=== PATIENT | female | born 1985 | race Caucasian/White ===

== ENCOUNTER 2016-11-20 12:24 | Emergency (ER) | payer MEDICAID ==
[~2016-11-20] VITALS: Ht 167.6 cm; Wt 81.6 kg
[2016-11-20 12:36] VITALS: BP 116/71
--- NOTE | 2016-11-20 13:00 | NUR ---
PATIENT PRESENTS TO ED WITH C/O BUTTOCK ABSCESS . DENIES N/V/D; SKIN IS PINK/WARM/DRY; AAOX4 WITH EVEN AND STEADY GAIT; LUNGS CLEAR BL; HR EVEN AND REGULAR; PT DENIES ANY FEVER, CP, SOB, OR COUGH AT THIS TIME; PATIENT STATES PAIN OF 0/10 AT THIS TIME; VSS; PATIENT POSITIONED FOR COMFORT; HOB ELEVATED; BEDRAILS UP X2; BED DOWN. ER MD MADE AWARE OF PT STATUS.
--- NOTE | 2016-11-20 14:35 | NUR ---
Patient discharged with v/s stable. Written and verbal after care instructions given and explained. Patient alert, oriented and verbalized understanding of instructions. Ambulatory with steady gait. All questions addressed prior to discharge. ID band removed. Patient advised to follow up with PMD. Rx of KEFLEX, BACTRIM, MUPIROCIN AND ANUSOL given. Patient educated on indication of medication including possible reaction and side effects. Opportunity to ask questions provided and answered.
[2016-11-20 14:42] VITALS: BP 98/68
== END 2016-11-20 14:35 | disposition home or self-care (01) ==
LOC: MED 12:24
PROC: 3E0134Z Introduction of Serum, Toxoid and Vaccine into Subcutaneous Tissue, Percutaneous Approach (ICD-10-PCS; principal; 2016-11-20)
DX: L02.31 Cutaneous abscess of buttock (principal); L73.9 Follicular disorder, unspecified
CPT/HCPCS: 90471; 90715; 99283

== ENCOUNTER 2018-10-03 19:53 | Emergency (ER) | payer MEDICAID ==
[~2018-10-03] VITALS: Ht 170.2 cm; Wt 105.2 kg
[2018-10-03 20:15] VITALS: BP 123/74
--- NOTE | 2018-10-03 20:18 | NUR ---
TO LOBBY A/W BED, RAVIN KAUR NOTED
--- NOTE | 2018-10-03 20:22 | NUR ---
TO ER BED 7
--- NOTE | 2018-10-03 20:25 | NUR ---
33/F PRESENTS TO ED WITH BOYFRIEND, C/O MODERATE AMOUNT VAGINAL BLEEDING X1 DAY. REPORTS SUPRAPUBIC CRAMPING, AND RELATED N/V. REPORTS FEVER AND FEELING COLD, AFEBRILE AT THIS TIME. PT DENIES CP, SOB, DIZZINESS. PT IS , 10 WEEKS , A1. PT AOX4, GCS 15, RR EVEN AND UNLABORED. HX HTN NO RX
--- NOTE | 2018-10-03 21:06 | NUR ---
L&D RN AT BEDSIDE FOR HEART TONE ASSESSMENT
--- NOTE | 2018-10-03 21:15 | NUR ---
PER L&D RN, NO HEART TONES DETECTED AT THIS TIME, ER MADE AWARE
[2018-10-03 21:46] LABS: BASOPHILS % (AUTO) 0.5 % (0.0-2.0); EOSINOPHILS # (AUTO) 0.8 K/uL (0-0.4); EOSINOPHILS % (AUTO) 9.2 % (0.0-4.0); HEMATOCRIT 40.6 % (36-48); HEMOGLOBIN 13.3 g/dL (12.0-16.0); LYMPHOCYTES # (AUTO) 1.9 K/uL (2.5-16.5); LYMPHOCYTES % (AUTO) 22.2 % (20.5-51.1); MEAN CORPUSCULAR HEMOGLOBIN 28 pg (27-31); MEAN CORPUSCULAR HGB CONC 33 g/dL (33-37); MEAN CORPUSCULAR VOLUME 85.4 fL (80-94); MONOCYTES # (AUTO) 0.8 K/uL (0.8-1.0); MONOCYTES % (AUTO) 9.1 % (1.7-9.3); NEUTROPHILS # (AUTO) 4.9 K/uL (1.8-7.7); PLATELET COUNT (AUTO) 327 K/uL (140-450); RED BLOOD CELL COUNT(AUTO) 4.76 MIL/uL (4.20-5.40); RED CELL DISTRIBUTION WIDTH 14.1 % (11.6-13.7); WHITE BLOOD COUNT (AUTO) 8.4 K/uL (4.8-10.8)
--- NOTE | 2018-10-03 22:00 | NUR ---
US TECH AT BEDSIDE
--- NOTE | 2018-10-03 22:30 | NUR ---
PT LAYING IN BED, AT BEDSIDE, VSS, REPORTS 6/10 SUPRAPUBIC CRAMPING, RR EVEN AND UNLABORED. ALL NEEDS MET.
[2018-10-03 22:31] LABS: APPEARANCE,URINE CLEAR (CLEAR); BILIRUBIN,URINE NEGATIVE (NEGATIVE); BLOOD, URINE 1+ (NEGATIVE); COLOR,URINE YELLOW (YELLOW); LEUKOCYTE ESTERASE ,URINE TRACE (NEGATIVE); NITRITE, URINE NEGATIVE (NEGATIVE); UGLUCOSE NEGATIVE (NEGATIVE)
--- NOTE | 2018-10-03 23:10 | NUR ---
ER AT BEDSIDE
[2018-10-03 23:18] LABS: RBC,URINE 0-5 (RARE) /HPF (0-5); WBC,URINE 0-5 (RARE) /HPF (0-5)
--- NOTE | 2018-10-03 23:38 | NUR ---
Patient discharged with v/s stable. Written and verbal after care instructions given and explained. Patient alert, oriented and verbalized understanding of instructions. Ambulatory with steady gait. All questions addressed prior to discharge. ID band removed. Patient advised to follow up with PMD. Rx of ZOFRAN, INSTRUCTED TO GET OTC ACETAMINOPHEN. Patient educated on indication of medication including possible reaction and side effects. Opportunity to ask questions provided and answered.
[2018-10-03 23:39] VITALS: BP 142/67
== END 2018-10-03 23:38 | disposition home or self-care (01) ==
LOC: MED 19:53
DX: O20.0 Threatened abortion (principal); Z3A.11 11 weeks gestation of pregnancy; O16.1 Unspecified maternal hypertension, first trimester; Z98.82 Breast implant status
CPT/HCPCS: 36415; 76815; 81001; 81025; 84702; 85025; 86900; 86901; 99284; Q0092

== ENCOUNTER 2018-10-19 23:54 | Emergency (ER) | payer MEDICAID ==
[~2018-10-19] VITALS: Ht 160 cm; Wt 106.6 kg
[2018-10-20 00:05] VITALS: BP 109/51
--- NOTE | 2018-10-20 00:10 | NUR ---
33/F PRESENTS WITH FAMILY, C/O MODERATE VAGINAL BLEEDING, X2 HRS. PT REPORTS SHE'S 14 WEEKS , A1. PT REPORTS 8/10 SUPRAPUBIC CRAMPING. PT AOX4, GCS 15, RR EVEN AND UNLABORED. DENIES MED HX, RX OR VITAMINS
--- NOTE | 2018-10-20 00:10 | NUR ---
PHLEB AT BEDSIDE FOR DRAWS
--- NOTE | 2018-10-20 00:10 | NUR ---
PT TAKEN TO BED 7
--- NOTE | 2018-10-20 00:32 | NUR ---
ER AT BEDSIDE
--- NOTE | 2018-10-20 00:32 | NUR ---
Macie kelley in ED - 10/20/18 at 0435 by RODERICK PT REFUSING TO HAVE BLOOD DRAWN, DR CORREA AT BEDSIDE TO SPEAK WITH PT ABOUT AMA. PT SIGNED AMA FORM.
--- NOTE | 2018-10-20 00:32 | NUR ---
PT REFUSING TO HAVE BLOOD DRAWN, DR CORREA AT BEDSIDE TO SPEAK WITH PT ABOUT AMA. PT SIGNED AMA FORM.
--- NOTE | 2018-10-20 01:00 | NUR ---
Patient does not wish to proceed with medical care recommended by DR. CORREA. Patient given information related to possible complications, up to and including , which could occur as a result of leaving hospital at this time. Patient verbalizes understanding of risks involved leaving against medical advice. Patient has signed AMA form.
== END 2018-10-20 01:00 | disposition left against medical advice (07) ==
LOC: MED 23:54
DX: O20.0 Threatened abortion (principal); I10 Essential (primary) hypertension; Z3A.16 16 weeks gestation of pregnancy
CPT/HCPCS: 81025; 99282

== ENCOUNTER 2018-10-21 04:49 | Emergency (ER) | payer MEDICAID ==
[~2018-10-21] VITALS: Ht 170.2 cm; Wt 102.1 kg
[2018-10-21 04:54] VITALS: BP 96/59
--- NOTE | 2018-10-21 04:54 | NUR ---
PT W/C ASSISTED TO BED 7
--- NOTE | 2018-10-21 04:54 | NUR ---
PT BIB FAMILY FOR VAGINAL BLEEDING AND ABD CRAMPING X2 DAYS. PT UNABLE TO STATE HOW MANY PADS SHE IS GOING THROUGH BUT STATES THAT THERE ARE LARGE CLOTS. PT REPORTS N/V, DIZINESS, AND FEVER. PT AFEBRILE NOW. PT BP 96/59, CAP REFIL <3 SEC, NO EDEMA PRESENT, PT TACHYCARDIC AT 121. PT STATES SHE IS NOT SOB, DENIES CP. VSS. ER MD TO SEE PT.
[2018-10-21] MEDS ORDERED: NACL 0.9% 1,000 ML IV ONE (05:05)
--- NOTE | 2018-10-21 05:12 | NUR ---
PHLEB AT BEDSIDE FOR LAB DRAWS
--- NOTE | 2018-10-21 05:34 | NUR ---
Dr. Yates evaluating patient at bedside.
[2018-10-21 05:50] LABS: ALBUMIN 3.2 g/dL (3.4-5.0); ANION GAP 11.1 (8-16); CARBON DIOXIDE 24.4 mmol/L (21-32); CREATININE 0.7 mg/dL (0.6-1.3); POTASSIUM 3.5 mmol/L (3.5-5.1); TOTAL BILIRUBIN 0.3 mg/dL (0.0-1.0)
[2018-10-21] MEDS ORDERED: ACETAMINOPHEN EXTRA STRENGTH 500 MG TAB PO ONE (05:50)
[2018-10-21 05:56] LABS: PROTHROMBIN TIME 10.4 secs (10.8-13.4)
--- NOTE | 2018-10-21 05:56 | NUR ---
PT GOING TO US AT THIS TIME.
[2018-10-21 06:02] LABS: BASOPHILS % (AUTO) 0.4 % (0.0-2.0); EOSINOPHILS # (AUTO) 0.7 K/uL (0-0.4); HEMATOCRIT 36.5 % (36-48); HEMOGLOBIN 12.1 g/dL (12.0-16.0); MEAN CORPUSCULAR HEMOGLOBIN 29 pg (27-31); MEAN CORPUSCULAR HGB CONC 33 g/dL (33-37); MEAN CORPUSCULAR VOLUME 85.9 fL (80-94); MONOCYTES # (AUTO) 0.7 K/uL (0.8-1.0); MONOCYTES % (AUTO) 8.1 % (1.7-9.3); NEUTROPHILS # (AUTO) 5.3 K/uL (1.8-7.7); NEUTROPHILS % (AUTO) 60.5 % (42.2-75.2); PLATELET COUNT (AUTO) 341 K/uL (140-450); RED BLOOD CELL COUNT(AUTO) 4.25 MIL/uL (4.20-5.40); RED CELL DISTRIBUTION WIDTH 13.8 % (11.6-13.7); WHITE BLOOD COUNT (AUTO) 8.8 K/uL (4.8-10.8)
--- NOTE | 2018-10-21 06:23 | NUR ---
PT RETURN FROM ULTRASOUND
--- NOTE | 2018-10-21 06:44 | NUR ---
put pt on bed anaya to obtain urinal. pt stated she was dizzy and wasn't sure if she could walk. pt states she is nauseas at this time. VSS
[2018-10-21] MEDS ORDERED: KETOROLAC 30 MG/ML VIAL IVP ONE (07:00)
[2018-10-21 07:37] LABS: APPEARANCE,URINE CLOUDY (CLEAR); BILIRUBIN,URINE NEGATIVE (NEGATIVE); BLOOD, URINE 3+ (NEGATIVE); COLOR,URINE RED (YELLOW); LEUKOCYTE ESTERASE ,URINE NEGATIVE (NEGATIVE); NITRITE, URINE NEGATIVE (NEGATIVE); UGLUCOSE NEGATIVE (NEGATIVE)
[2018-10-21 07:38] LABS: RBC,URINE TOO NUMEROUS TO COUN /HPF (0-5)
[2018-10-21 07:40] LABS: WBC,URINE 0-5 (RARE) /HPF (0-5)
[2018-10-21 08:04] VITALS: BP 118/80
--- NOTE | 2018-10-21 08:05 | NUR ---
Patient discharged with v/s stable. Written and verbal after care instructions given and explained. Patient alert, oriented and verbalized understanding of instructions. Ambulatory with steady gait. All questions addressed prior to discharge. ID band removed. Patient advised to follow up with PMD. Rx of norco and naprosyn given. Patient educated on indication of medication including possible reaction and side effects. Opportunity to ask questions provided and answered.
--- NOTE | 2018-10-23 08:46 | NUR ---
Late entry confirmed with RN that 0.9 NS IV bolus was completed at 0630.
== END 2018-10-21 08:05 | disposition home or self-care (01) ==
LOC: MED 04:49
DX: O03.9 Complete or unspecified spontaneous abortion without complication (principal); I10 Essential (primary) hypertension; Z3A.01 Less than 8 weeks gestation of pregnancy
CPT/HCPCS: 36415; 76817; 80053; 81001; 84702; 85025; 85610; 85730; 86900; 86901; 96361; 96374; 99284; J1885; J7030

== ENCOUNTER 2022-02-08 05:25 | Observation (INO) | payer MEDICAID ==
[~2022-02-08] VITALS: Ht 170.2 cm; Wt 111.1 kg
[2022-02-08] MEDS ORDERED: PRETAB PO (05:49)
[2022-02-08] MEDS ORDERED: LACTATED RINGERS 1,000 ML IV SCH ×2 (06:00)
[2022-02-08] MEDS ORDERED: ONDANSETRON 4 MG/2 ML VIAL IVP PRN (06:00)
[2022-02-08] MEDS ORDERED: METOCLOPRAMIDE 10 MG/2 ML INJ VIAL IVP PRN (06:00)
[2022-02-08] MEDS ORDERED: ONDANSETRON 4 MG/2 ML VIAL ONE (06:07)
[2022-02-08] MEDS ORDERED: METOCLOPRAMIDE 10 MG/2 ML INJ VIAL ONE (06:08)
[2022-02-08 06:16] LABS: APPEARANCE,URINE CLOUDY (CLEAR); BILIRUBIN,URINE NEGATIVE (NEGATIVE); BLOOD, URINE 2+ (NEGATIVE); COLOR,URINE YELLOW (YELLOW); LEUKOCYTE ESTERASE ,URINE 1+ (NEGATIVE); NITRITE, URINE NEGATIVE (NEGATIVE); UGLUCOSE NEGATIVE (NEGATIVE)
[2022-02-08 06:17] LABS: BASOPHILS % (AUTO) 0.3 % (0.0-2.0); EOSINOPHILS # (AUTO) 0.2 K/uL (0-0.4); EOSINOPHILS % (AUTO) 3.9 % (0.0-4.0); HEMATOCRIT 40.5 % (36-48); HEMOGLOBIN 13.4 g/dL (12.0-16.0); LYMPHOCYTES # (AUTO) 0.4 K/uL (2.5-16.5); MEAN CORPUSCULAR HEMOGLOBIN 28 pg (27-31); MEAN CORPUSCULAR HGB CONC 33 g/dL (33-37); MEAN CORPUSCULAR VOLUME 85.1 fL (80-94); MONOCYTES # (AUTO) 0.3 K/uL (0.8-1.0); MONOCYTES % (AUTO) 5.5 % (1.7-9.3); NEUTROPHILS # (AUTO) 5.2 K/uL (1.8-7.7); NEUTROPHILS % (AUTO) 84.3 % (42.2-75.2); PLATELET COUNT (AUTO) 301 K/uL (140-450); RED BLOOD CELL COUNT(AUTO) 4.76 MIL/uL (4.20-5.40); RED CELL DISTRIBUTION WIDTH 14.1 % (11.6-13.7); WHITE BLOOD COUNT (AUTO) 6.2 K/uL (4.8-10.8)
[2022-02-08 06:23] LABS: RBC,URINE 0-5 /HPF (0-5)
[2022-02-08 06:35] LABS: ALBUMIN 2.8 g/dL (3.4-5.0); ANION GAP 12.1 (8-16); CARBON DIOXIDE 24.5 mmol/L (21-32); CREATININE 0.5 mg/dL (0.6-1.3); POTASSIUM 3.6 mmol/L (3.5-5.1); TOTAL BILIRUBIN 0.5 mg/dL (0.0-1.0)
[2022-02-08 07:03] VITALS: BP 120/68
== END 2022-02-08 10:05 | disposition home or self-care (01) ==
LOC: MLD 05:25
PROVIDERS: ADMIT Obstetrics & Gynecology; ATTEND Obstetrics & Gynecology
DX: O26.892 Other specified pregnancy related conditions, second trimester (principal); R10.9 Unspecified abdominal pain; O21.9 Vomiting of pregnancy, unspecified; Z3A.20 20 weeks gestation of pregnancy
CPT/HCPCS: 36415; 76805; 80053; 81000; 81001; 85025; 87086; 96360; 96361; G0378; G0379; J2405; J2765; Q0092

== ENCOUNTER 2022-02-18 01:01 | Observation (INO) | payer MEDICAID ==
[~2022-02-18] VITALS: Ht 182.9 cm; Wt 111.1 kg
[~2022-02-18 01:01] MED LIST: PRETAB PO
[2022-02-18] MEDS ORDERED: ACETAMINOPHEN 325 MG TAB PO ONE (02:10)
[2022-02-18] MEDS ORDERED: ACETAMINOPHEN 325 MG TAB ONE ×2 (02:12→02:13)
--- NOTE | 2022-02-18 06:54 | NUR ---
PATIENT HAS BEEN SCREENED AND CATEGORIZED LOW NUTRITION RISK. PATIENT WILL BE SEEN WITHIN 7 DAYS OF ADMISSION. 02/25/22 ELVER LANGFORD MS, RDN
== END 2022-02-18 03:05 | disposition home or self-care (01) ==
LOC: MLD 01:01
PROVIDERS: ADMIT Obstetrics & Gynecology; ATTEND Obstetrics & Gynecology
DX: O26.892 Other specified pregnancy related conditions, second trimester (principal); R10.9 Unspecified abdominal pain; Z3A.23 23 weeks gestation of pregnancy
CPT/HCPCS: 87426; G0378

== ENCOUNTER 2022-11-06 09:52 | Emergency (ER) | payer MEDICAID ==
[~2022-11-06] VITALS: Ht 170.2 cm; Wt 95.3 kg
[2022-11-06 10:02] VITALS: BP 127/68
--- NOTE | 2022-11-06 11:04 | NUR ---
37 Y/O FEMALE BIB SELF C/O SCANT RECTAL BLEEDING BRIGHT RED BLOOD, LLQ ABD PAIN AND DIARRHEA XYESTERDAY. PER PT 4 EPISODES OF DIARRHEA TODAY. PT PROVIDING PICTURE OF STOOL, NOTED FORMED STOOL WITH STRIPES OF BRIGHT RED BLOOD. DENIES ANY NV. DENIES ANY MEDS FOR PAIN NKA PMH: DM, HTN
[2022-11-06 12:06] LABS: BASOPHILS # (AUTO) 0.1 K/uL (0.00-0.22); EOSINOPHILS # (AUTO) 0.4 K/uL (0-0.4); HEMATOCRIT 42.2 % (36-48); LYMPHOCYTES # (AUTO) 2.4 K/uL (2.5-16.5); LYMPHOCYTES % (AUTO) 32.3 % (20.5-51.1); MEAN CORPUSCULAR HEMOGLOBIN 28 pg (27-31); MEAN CORPUSCULAR HGB CONC 33 g/dL (33-37); MEAN CORPUSCULAR VOLUME 85.6 fL (80-94); MONOCYTES # (AUTO) 0.6 K/uL (0.8-1.0); MONOCYTES % (AUTO) 7.6 % (1.7-9.3); NEUTROPHILS # (AUTO) 3.9 K/uL (1.8-7.7); NEUTROPHILS % (AUTO) 53.1 % (42.2-75.2); PLATELET COUNT (AUTO) 382 K/uL (140-450); RED BLOOD CELL COUNT(AUTO) 4.93 MIL/uL (4.20-5.40); RED CELL DISTRIBUTION WIDTH 13.8 % (11.6-13.7); WHITE BLOOD COUNT (AUTO) 7.4 K/uL (4.8-10.8)
[2022-11-06 12:27] LABS: CARBON DIOXIDE 27.3 mmol/L (21-32); CREATININE 0.6 mg/dL (0.6-1.3); POTASSIUM 4.3 mmol/L (3.5-5.1); TOTAL BILIRUBIN 0.3 mg/dL (0.0-1.0)
[2022-11-06] MEDS ORDERED: HYDR-2734 TP (13:19)
[2022-11-06] MEDS ORDERED: CIPR500T4 PO (13:19)
[2022-11-06] MEDS ORDERED: ACET-10509 PO (13:19)
[2022-11-06] MEDS ORDERED: METR-520 PO (13:19)
[2022-11-06 14:18] VITALS: BP 122/68
--- NOTE | 2022-11-06 14:19 | NUR ---
Patient discharged with v/s stable. Written and verbal after care instructions given and explained. Patient alert, oriented and verbalized understanding of instructions. Ambulatory with steady gait. All questions addressed prior to discharge. ID band removed. Patient advised to follow up with PMD. Rx of TYLENOL, CIPRO, ANUSOL, FLAGYL given. Patient educated on indication of medication including possible reaction and side effects. Opportunity to ask questions provided and answered.
== END 2022-11-06 14:18 | disposition home or self-care (01) ==
LOC: MED 09:52
DX: R10.32 Left lower quadrant pain (principal); K92.1 Melena; I10 Essential (primary) hypertension; Z79.899 Other long term (current) drug therapy
CPT/HCPCS: 36415; 80053; 83690; 85025; 99283